=== PATIENT | male | born 1970 | race Asian ===

== ENCOUNTER 2022-09-04 18:36 | Emergency (ER) | payer OTHER ==
[~2022-09-04] VITALS: Ht 170.2 cm; Wt 77.3 kg
[2022-09-04] MEDS ORDERED: FLUT220HFA IH (18:47)
[2022-09-04] MEDS ORDERED: LORA10TA7 PO (18:47)
[2022-09-04] MEDS ORDERED: ATOR40TA71 PO (18:47)
[2022-09-04] MEDS ORDERED: BUPR-49 PO (18:47)
[2022-09-04] MEDS ORDERED: OMEP20CA12 PO (18:47)
[2022-09-04] MEDS ORDERED: TELM20TA8 PO (18:47)
[2022-09-04] MEDS ORDERED: CYCL-448 PO (21:10)
[2022-09-04 22:48] VITALS: BP 136/95
== END 2022-09-04 22:50 | disposition home or self-care (01) ==
LOC: EMS 18:36
DX: S16.1XXA Strain of muscle, fascia and tendon at neck level, initial encounter (principal); J45.909 Unspecified asthma, uncomplicated; F32.A Depression, unspecified; V89.2XXA Person injured in unspecified motor-vehicle accident, traffic, initial encounter; Y93.89 Activity, other specified; Y92.89 Other specified places as the place of occurrence of the external cause; Y99.8 Other external cause status
CPT/HCPCS: 70450; 72125; 99284